=== PATIENT | female | born 1950 | race Caucasian/White ===

== ENCOUNTER → 2016-07-24 | Outpatient (CLI) | payer OTHER ==
--- NOTE | 2016-07-24 11:34 | RAD ---
Indication screening for osteoporosis. The right hip and lumbar spine were evaluated. No prior bone density analysis is available. In the lumbar spine the calculated T score may be artificially high secondary to some sclerotic changes particularly in the lower lumbar spine. The average bone mild density is approximately 1.28 g/cc but the bone mineral density at L1 is 0.85 g/cc. The average T score is 0.8 but the T score referable to L1 is -2.3. In the right hip the average bone mineral density is approximately 0.94 g/cc however the intertrochanteric area and the neck have bone mineral densities of approximately 0.8 g/cc. T-scores in the neck and intertrochanteric area are -1.8 and -1.3 respectively indicative of osteopenia. IMPRESSION: Osteopenic right hip. The L1 vertebral body is osteopenic
== END | disposition home or self-care (01) ==
LOC: DXRAD 09:50
PROVIDERS: ATTEND Family Medicine
DX: Z13.820 Encounter for screening for osteoporosis (principal); Z00.01 Encounter for general adult medical examination with abnormal findings; M85.88 Other specified disorders of bone density and structure, other site; F17.200 Nicotine dependence, unspecified, uncomplicated
CPT/HCPCS: 77080

== ENCOUNTER → 2017-01-30 | Outpatient (CLI) | payer OTHER ==
--- NOTE | 2017-01-30 15:24 | RAD ---
CT study of the cervical spine without contrast Clinical indications: Cervical radiculopathy. No recent injury. Headaches. Technique: Noncontrast helical CT scanning of the cervical spine was performed. Multiplanar 2-D reconstructions were generated. PQRS Compliance Statement: One or more of the following individualized dose reduction techniques were utilized for this examination: 1. Automated exposure control 2. Adjustment of the mA and/or kV according to patient size 3. Use of iterative reconstruction technique Findings: No acute fracture is evident. No discitis or osteolytic process is evident. There is severe degenerative disc space narrowing and endplate spurring at C5-6 and C6-7. There is mild AP dimensional spinal canal stenosis at these 2 levels. There is grade 1 anterolisthesis of C3-4. There is mild narrowing of the neural foramina bilaterally at this level. There is less prominent grade 1 anterolisthesis of C4-5. No significant narrowing of the neural foramina is seen at this level. There is moderate narrowing of the right neural foramen and mild narrowing of left neural foramen at C5-6. There is moderate narrowing of the left neural foramen and mild narrowing of the right neural foramen at C6-7. No significant focal disc protrusion is seen throughout the cervical spine. No apical lung infiltrate is seen. IMPRESSION: No acute fracture. Degenerative cervical spondylosis at C5-6 and C6-7.
== END | disposition home or self-care (01) ==
LOC: CT 08:04
PROVIDERS: ATTEND Family Medicine
DX: M54.12 Radiculopathy, cervical region (principal); M48.02 Spinal stenosis, cervical region
CPT/HCPCS: 72125

== ENCOUNTER → 2017-05-19 | Outpatient (CLI) | payer OTHER ==
--- NOTE | 2017-05-19 14:33 | RAD ---
DATE: 05/19/2017 EXAM: MAMMO OMAR SCREENING BILATERAL HISTORY: Routine screening COMPARISON: 04/16/2016 This study was interpreted with the benefit of Computerized Aided Detection (CAD). FINDINGS: Breast Density: HETERO The breast parenchyma Is heterogeneouslyy dense, which could reduce sensitivity of mammography. Breast parenchyma level C. There are no dominant suspicious masses, suspicious microcalcifications or evidence of architectural distortion. Benign-appearing calcification is identified in the left breast. IMPRESSION: Benign findings BI-RADS CATEGORY: 2 BENIGN FINDING RECOMMENDED FOLLOW-UP: 12M 12 MONTH FOLLOW-UP PQRS compliance statement: Patient information was entered into a reminder system with a target due date 05/19/2018 for the next mammogram. Mammography is a sensitive method for finding small breast cancers, but it does not detect them all and is not a substitute for careful clinical examination. A negative mammogram does not negate a clinically suspicious finding and should not result in delay in biopsying a clinically suspicious abnormality. "Our facility is accredited by the [employer] Mammography Program."
== END | disposition home or self-care (01) ==
LOC: MAMMO 10:15
PROVIDERS: ATTEND Family Medicine
DX: Z12.31 Encounter for screening mammogram for malignant neoplasm of breast (principal)
CPT/HCPCS: 77063; 77067

== ENCOUNTER → 2017-10-13 | Outpatient (CLI) | payer OTHER ==
--- NOTE | 2017-10-13 12:49 | RAD ---
CT of the chest without contrast, 10/13/2017: HISTORY: Weight loss, heavy smoker Noncontrast scans were obtained as requested. There is moderate calcific plaquing of the thoracic aorta. A tiny contour bulge along the distal aortic arch laterally may represent a ductus diverticulum. Mild coronary artery calcifications are noted. There are calcified mediastinal and hilar lymph nodes due to old granulomatous disease. There are mild scattered emphysematous changes in the lungs. There are right perihilar calcifications compatible with old granulomatous disease. There is an abrupt cut off in the right middle lobe bronchus with adjacent dense nilo calcifications and right middle lobe atelectasis. No other pulmonary consolidation or mass is seen. There is no evidence of pleural fluid. Mild scattered degenerative changes are present in the spine. IMPRESSION: 1. Emphysema. 2. Old healed granulomatous disease in the chest. 3. Right middle lobe atelectasis which is likely a postinflammatory basis considering the dense calcifications adjacent to the amputated right middle lobe bronchus. An endobronchial lesion cannot be entirely excluded. Bronchoscopic evaluation may be considered for further evaluation. 4. Mild coronary artery calcifications. Electronically signed by: Jayden López MD (10/13/2017 12:46 PM) [facility]
== END | disposition home or self-care (01) ==
LOC: CT 10:31
PROVIDERS: ATTEND Family Medicine
DX: J43.9 Emphysema, unspecified (principal); I25.10 Atherosclerotic heart disease of native coronary artery without angina pectoris; Z87.891 Personal history of nicotine dependence
CPT/HCPCS: 71250

== ENCOUNTER → 2018-04-16 | Outpatient (CLI) | payer OTHER ==
[~2018-04-16] MED LIST: IOHEXOL 240 MG/ML 50ML VIAL. ONE; IOHEXOL 300 MG/ML 75 ML VIAL. IV ONE
--- NOTE | 2018-04-16 11:27 | RAD ---
EXAM: Abdomen and pelvis CT with intravenous contrast. HISTORY: Right lower quadrant pain. TECHNIQUE: Computed tomographic images of the abdomen and pelvis were obtained following the administration of 75 cc Omnipaque 300 intravenous contrast. Multiplanar reformatting was performed. *One or more of the following individualized dose reduction techniques were utilized for this examination: 1. Automated exposure control. 2. Adjustment of the mA and/or kV according to patient size. 3. Use of iterative reconstruction technique. COMPARISON: None. FINDINGS: Evaluation of the lower thorax is unremarkable. There is superior hepatic granulomas. There is slight periportal edema, a finding which can be related to the hydration status the patient. No suspicious hepatic lesion is seen. The gallbladder, pancreas, spleen, adrenal glands and kidneys are unremarkable. There is a large amount of stool throughout the colon. There are nonspecific air-filled loops of small bowel throughout the abdomen, without significant small bowel wall thickening. There is no lymphadenopathy. The bladder is unremarkable. The uterus and adnexal regions are unremarkable. There is heavily calcified atherosclerotic plaque within the aorta and main aortic branch vessels. There is narrowing of the origin of the celiac axis and involving the proximal right renal artery and origin of the left renal artery. No aneurysm is seen. There is suspected significant stenosis also involving the proximal common iliac arteries. There are degenerative changes throughout the spine. There is no suspicious osseous lesion. IMPRESSION: 1. Large amount of colonic stool. Correlate for constipation. There are also nonspecific loops of small bowel throughout the abdomen, without significant wall thickening to suggest enteritis. 2. Aortic and aortic branch vessel atherosclerosis, resulting in stenosis as described above. Electronically signed by: Conchis Grewal MD (04/16/2018 11:23 AM) [facility]
== END | disposition home or self-care (01) ==
LOC: CT 08:34
PROVIDERS: ATTEND Family Medicine
DX: I70.0 Atherosclerosis of aorta (principal); K75.3 Granulomatous hepatitis, not elsewhere classified
CPT/HCPCS: 74177; Q9966; Q9967

== ENCOUNTER → 2018-07-23 | Outpatient (CLI) | payer OTHER ==
--- NOTE | 2018-07-23 10:42 | RAD ---
DATE: 07/23/2018 EXAM: MAMMO OMAR SCREENING BILATERAL HISTORY: Routine screening COMPARISON: 05/19/2017 This study was interpreted with the benefit of Computerized Aided Detection (CAD). Breast Density: HETERO The breast parenchyma is heterogenously dense, which could reduce sensitivity of mammography. Breast parenchyma level C. FINDINGS: 2-D and 3-D tomosynthesis imaging was performed in CC and MLO projections. No new or enlarging breast densities are seen. Benign type calcifications are present. No suspicious microcalcifications have developed. IMPRESSION: Stable mammograms without evidence of malignancy. BI-RADS CATEGORY: 2 BENIGN FINDING(S) RECOMMENDED FOLLOW-UP: 12M 12 MONTH FOLLOW-UP PQRS compliance statement: Patient information was entered into a reminder system with a target due date for the next mammogram. Mammography is a sensitive method for finding small breast cancers, but it does not detect them all and is not a substitute for careful clinical examination. A negative mammogram does not negate a clinically suspicious finding and should not result in delay in biopsying a clinically suspicious abnormality. "Our facility is accredited by the [employer] Mammography Program."
== END | disposition home or self-care (01) ==
LOC: MAMMO 07:47
PROVIDERS: ATTEND Family Medicine
DX: Z12.31 Encounter for screening mammogram for malignant neoplasm of breast (principal); N64.89 Other specified disorders of breast
CPT/HCPCS: 77063; 77067

== ENCOUNTER → 2019-01-22 | Outpatient (CLI) | payer OTHER ==
--- NOTE | 2019-01-22 15:11 | RAD ---
CT LOW DOSE LUNG SCREENING Indication: Lung cancer screening, long time smoker Technique: Noncontrast CT imaging was performed of the chest as per low dose screening protocol, multiplanar reconstruction images submitted. One or more of the following individualized dose reduction techniques were utilized for this examination: 1. Automated exposure control 2. Adjustment of the mA and/or kV according to patient size 3. Use of iterative reconstruction technique. Comparison: None Findings: There is a small approximate 0.2 to 0.3 cm left upper lobe nodule image 14 series 2. There is a small 0.2 cm left upper lobe nodule image 15. There is mild reticular density near the right apex likely fibrotic change. There is emphysema with upper zone predominance. There is no pleural or pericardial fluid or pneumothorax. There is no lobar consolidation. There is coronary calcification. No significantly enlarged nodes are identified of the chest. There are some calcified mediastinal and right hilar nodes also some calcified nodularity of the right hemithorax. There is truncation of the proximal right middle lobe bronchus at which there is some soft tissue density, calcifications just distally, mostly collapsed right middle lobe with minimal aeration medially. There is some atherosclerotic calcification of the visualized abdominal aorta. IMPRESSION: 1. Right middle lobe is mostly collapsed with truncation of the bronchus more centrally at which there is some noncalcified density, consideration of mucous plugging although mass not excluded for which bronchoscopy advised. Just distally, there are some calcifications which may be sequela of old granulomatous disease. Lung RADS category 5. 2. There is emphysema with upper zone predominance. 3. There are some small noncalcified pulmonary nodules as stated. Regarding the small lung nodules, one year follow-up is advised. 4. There is some coronary calcification. Electronically signed by: Ash Rivera MD (01/22/2019 3:08 PM) [id number]
== END | disposition home or self-care (01) ==
LOC: CT 10:08
PROVIDERS: ATTEND Family Medicine
DX: Z12.2 Encounter for screening for malignant neoplasm of respiratory organs (principal); J43.9 Emphysema, unspecified; R91.8 Other nonspecific abnormal finding of lung field; I25.10 Atherosclerotic heart disease of native coronary artery without angina pectoris; J98.19 Other pulmonary collapse; I70.0 Atherosclerosis of aorta; F17.200 Nicotine dependence, unspecified, uncomplicated
CPT/HCPCS: G0297

== ENCOUNTER → 2019-09-14 | Outpatient (CLI) | payer MEDICARE ==
--- NOTE | 2019-09-14 12:29 | RAD ---
EXAM: Dual energy x-ray absorptiometry (DEXA). HISTORY: Postmenopausal female presents for osteoporosis screening. COMPARISON: 07/24/2016. TECHNIQUE: Dual energy x-ray absorptiometry of the lumbar spine and right hip was performed. Calculation of bone mineral density based on standard deviations above or below the expected young adult normal value (T-score) was completed. FINDINGS: The average bone mineral density in the 1st through 4th lumbar vertebrae is 1.2-4 g/cmxcm, corresponding with a T-score of 0.4. There has been a 4.2 percent decrease in density of the lumbar spine compared to the prior study. The average total bone mineral density in the right hip is 0.824 g/cmxcm, corresponding with a T-score of -1.1. There has been a 7.1 percent decrease in density of the right hip compared to the prior study. IMPRESSION: 1. Osteopenia measured at the right hip. 2. Normal bone mineral density measured at the lumbar spine. Note: Definitions established by the World Health Organization: 1. Normal: T-score is -1.0 or above. 2. Osteopenia: T-score is between -1.0 and -2.5 . 3. Osteoporosis: T-score is -2.5 or below. Electronically signed by: Conchis Grewal MD (09/14/2019 12:26 PM) [id number]
--- NOTE | 2019-09-15 12:46 | RAD ---
DATE: 09/14/2019 10:20 AM EXAM: MAMMO OMAR SCREENING BILATERAL HISTORY: Screening COMPARISON: 07/23/2018, 05/19/2017 Bilateral CC and MLO views of the breasts were performed. Bilateral breast tomosynthesis was performed in CC and MLO projections. This study was interpreted with the benefit of Computerized Aided Detection (CAD). FINDINGS: Breast Density: HETERO The breast parenchyma Is heterogeneously dense, which could reduce sensitivity of mammography. Breast parenchyma level C No suspicious masses, microcalcifications or architectural distortion is present to suggest malignancy in either breast. The visualized axillae are unremarkable. IMPRESSION: No mammographic evidence of malignancy. BI-RADS CATEGORY: 1 NEGATIVE RECOMMENDED FOLLOW-UP: 12M 12 MONTH FOLLOW-UP Annual screening mammography is recommended, unless clinically indicated sooner based on symptoms or change in physical exam. PQRS compliance statement: Patient information was entered into a reminder system with a target due date 09/14/2020 for the next mammogram. Mammography is a sensitive method for finding small breast cancers, but it does not detect them all and is not a substitute for careful clinical examination. A negative mammogram does not negate a clinically suspicious finding and should not result in delay in biopsying a clinically suspicious abnormality. "Our facility is accredited by the [employer] Mammography Program."
== END | disposition home or self-care (01) ==
LOC: MAMMO 09:41
PROVIDERS: ATTEND Family Medicine
DX: Z12.31 Encounter for screening mammogram for malignant neoplasm of breast (principal); Z00.00 Encounter for general adult medical examination without abnormal findings; M85.88 Other specified disorders of bone density and structure, other site
CPT/HCPCS: 77063; 77067; 77080

== ENCOUNTER → 2020-06-21 | Outpatient (CLI) | payer MEDICARE, OTHER ==
--- NOTE | 2020-06-22 08:59 | RAD ---
CT LOW DOSE LUNG SCREEN History: Smoker. Screening. Technique: Noncontrast CT of the chest was performed. Coronal and sagittal reconstructions were perfo rmed. Exposure: One or more of the following individualized dose reduction techniques were utilized for thi s examination: 1. Automated exposure control 2. Adjustment of the mA and/or kV according to patient size 3. Use of iterative reconstruction technique. Comparison: January 22, 2019 Findings: Chest: Calcified mediastinal and right hilar lymph nodes as well as calcified pulmonary nodules, like ly prior granulomatous disease. No pathologically enlarged lymph nodes. Moderate atheromatous plaque within the aorta. Coronary artery calcifications. Severe pulmonary emphysema. Right middle lobe near complete atelectasis, unchanged. Unchanged chronic obstruction of the right middle lobe bronchus likely due to adjacent granulomatous disease. 3 mm left upper lobe pulmonary nodule (series 2 image 44), unchanged. 2 mm left upper lobe pulmonary nodule (image 86), unchanged. Upper abdomen: The imaged upper abdomen is unremarkable. Bones: Reverse S shaped curvature of the lumbar spine. Multilevel thoracic spondylosis. Impression: 1. Small pulmonary nodules, unchanged. Lung RADS 2. Recommend continued annual low-dose screening CT in 12 months. 2. Chronic near complete collapse of the right middle lobe with obstruction of the right middle lobe bronchus, unchanged. 3. Severe pulmonary emphysema. Electronically signed by: Feng Alcocer DO (06/22/2020 8:57 AM) [id number]
== END ==
LOC: CT 12:54
PROVIDERS: ATTEND Family Medicine
DX: Z12.2 Encounter for screening for malignant neoplasm of respiratory organs (principal); J43.8 Other emphysema; R91.1 Solitary pulmonary nodule; Z87.891 Personal history of nicotine dependence
CPT/HCPCS: 71271

== ENCOUNTER → 2020-09-14 | Outpatient (CLI) | payer OTHER ==
--- NOTE | 2020-09-15 10:57 | RAD ---
DATE: 09/14/2020 EXAM: DIGITAL SCREEN BILAT W/CAD HISTORY: Screening COMPARISON: Multiple prior exams dating back to 08/16/2011 This study was interpreted with the benefit of Computerized Aided Detection (CAD). Breast Density: HETERO The breast parenchyma is heterogenously dense, which could reduce sensitivity of mammography. Breast parenchyma level C. FINDINGS: No mass, suspicious calcification, or architectural distortion in either breast. IMPRESSION: No evidence of malignancy. BI-RADS CATEGORY: 1 NEGATIVE RECOMMENDED FOLLOW-UP: 12M 12 MONTH FOLLOW-UP PQRS compliance statement: Patient information was entered into a reminder system with a target due date for the next mammogram. Mammography is a sensitive method for finding small breast cancers, but it does not detect them all and is not a substitute for careful clinical examination. A negative mammogram does not negate a clinically suspicious finding and should not result in delay in biopsying a clinically suspicious abnormality. "Our facility is accredited by the [employer] Mammography Program."
== END ==
LOC: MAMMO 11:11
PROVIDERS: ATTEND Family Medicine
DX: Z12.31 Encounter for screening mammogram for malignant neoplasm of breast (principal)
CPT/HCPCS: 77067

== ENCOUNTER → 2021-01-19 | Outpatient (CLI) | payer OTHER ==
--- NOTE | 2021-01-19 11:20 | RAD ---
EXAM: Abdomen sonogram. HISTORY: Abnormal liver enzyme laboratory values. TECHNIQUE: Sonographic imaging of the abdomen was performed. COMPARISON: CT dated 04/16/2018. FINDINGS: The liver is normal in size. No focal hepatic lesion is seen. The gallbladder, pancreas, an d kidneys are unremarkable. There are splenic granulomas. The spleen is normal in size. There is aort ic atherosclerosis. The aorta is normal in caliber. IMPRESSION: No acute sonographic finding. No finding to correlate with abnormal liver enzyme laborato ry values. Electronically signed by: Conchis Grewal MD (01/19/2021 11:18 AM) [id number]
== END ==
LOC: US 09:59
PROVIDERS: ATTEND Family Medicine
DX: R94.5 Abnormal results of liver function studies (principal); I70.0 Atherosclerosis of aorta
CPT/HCPCS: 76700

== ENCOUNTER → 2021-06-22 | Outpatient (CLI) | payer OTHER ==
--- NOTE | 2021-06-22 12:37 | RAD ---
EXAM: CT CHEST WITHOUT CONTRAST (LDCT LUNG CANCER SCREENING). HISTORY: Risk factors for pulmonary malignancy. Cigarette smoking. Nicotine dependence TECHNIQUE: CT of the chest was performed without intravenous contrast using a low-dose lung screening protocol. Findings analysis is based on ACR Lung-RADS v1.1. *One or more of the following individual ized dose reduction techniques were utilized for this examination: 1. Automated exposure control. 2. Adjustment of the mA and/or kV according to patient size. 3. Use of iterative reconstruction technique. COMPARISON: 06/21/2020. FINDINGS: The heart is normal in size. There is coronary artery calcification. There is aortic athero sclerosis. There is a stable suspected diverticulum along the aortic arch measuring 10 mm. There are calcified mediastinal and right hilar granulomas. There is no lymphadenopathy. There is no infiltrate , pleural effusion or pneumothorax. There is moderate emphysema. There is scarring and collapse of th e right middle lobe with associated calcifications and obstruction of the middle lobe bronchi. There is linear pleural parenchymal scarring within the right greater than left lung apices. There is a sta ble 3 mm nodule within the lateral left lung apex (series 5, image 47. The additional previously desc ribed pulmonary nodule is less conspicuous on the current exam. There is no new suspicious lesion. Th ere is no acute finding involving the upper abdomen. There are degenerative changes throughout the sp ine. There are advanced endplate changes and there is near complete loss of the disc space at T10-T11 . This corresponds with the level of maximum scoliotic concavity and is progressed compared to the pr ior exam. IMPRESSION: 1. 3 mm left apical pulmonary nodule. Lung RADS category 2: Follow-up with a chest low-dose lung [facility] er screening CT in 12 months is recommended. 2. Moderate emphysema with biapical pleural parenchymal scarring and right middle lobe scarring and c ollapse. 3. No acute thoracic finding. Electronically signed by: Conchis Grewal MD (06/22/2021 12:34 PM) [facility]
== END ==
LOC: CT 10:53
PROVIDERS: ATTEND Family Medicine
DX: R91.1 Solitary pulmonary nodule (principal); J43.9 Emphysema, unspecified; I25.10 Atherosclerotic heart disease of native coronary artery without angina pectoris; I70.0 Atherosclerosis of aorta; J84.10 Pulmonary fibrosis, unspecified; M47.819 Spondylosis without myelopathy or radiculopathy, site unspecified; M51.24 Other intervertebral disc displacement, thoracic region; F17.210 Nicotine dependence, cigarettes, uncomplicated
CPT/HCPCS: 71271